=== PATIENT | female | born 1995 | race Caucasian/White ===

== ENCOUNTER 2019-05-04 17:02 | Day surgery (SDC) | payer OTHER ==
[2019-05-04 17:54] VITALS: BMI 45.1
[2019-05-04 17:55] VITALS: BP 120/76
[2019-05-04 18:12] VITALS: TEMP 99.7
[2019-05-04] MEDS ORDERED: hydrALAZINE 20 MG/ML VIAL SLOW IVP PRN (21:03)
[2019-05-04] MEDS ORDERED: Morphine 10 MG/ML VIAL IM SCH (21:15)
--- NOTE | 2019-05-05 02:46 | HP ---
CHIEF COMPLAINT: Painful contraction. HISTORY OF PRESENT ILLNESS: This is a 23-year-old G2, P0, at 39 weeks and 1 day with complaints of painful contractions since 2 o'clock this afternoon. The patient reports they have been regular every 5-7 minutes and rates them as 6/10 on the pain scale. She denies any leakage of fluid or vaginal bleeding. She endorses good movement. OBSTETRICAL HISTORY: care with Dr. Charles, uncomplicated . ARTHUR is 05/10/2019. Normal labs. Rh negative, status post RhoGAM. PAST MEDICAL HISTORY: Denies. PAST SURGICAL HISTORY: Denies. SOCIAL HISTORY: Negative x3. FAMILY HISTORY: Noncontributory. MEDICATIONS: 1. Tums. 2. vitamins. ALLERGIES: NO KNOWN DRUG ALLERGIES. REVIEW OF SYSTEMS: Negative except as noted in HPI. PHYSICAL EXAMINATION: VITAL SIGNS: Blood pressure is 120/76, heart rate is 100, respirations 20, saturations 96%, and temperature is 99.1. GENERAL: In no acute distress. Alert and oriented x3. CARDIAC: Regular rate and rhythm. LUNGS: Clear to auscultation bilaterally. ABDOMEN: Soft, nontender, gravid. EXTREMITIES: No edema, cyanosis, or clubbing. PELVIC: Initial check was 2 cm, 75%, -2 station. Check after the patient walked for 2 hours was exactly the same. Her EFM shows reassuring heart rate with a baseline of 130, moderate [id number] variability, positive accelerations, no decelerations. [place] shows contractions every 2-6 minutes. ASSESSMENT AND PLAN: A 23-year-old G2, P0, at 39 weeks and 1 day, with contractions. The patient has not made any cervical policy change clerk 2 hours. I have given the patient strict labor warnings to return for increase in intensity of contractions, leakage of fluid, or vaginal bleeding. She has a reassuring heart rate tracing and we will give the patient IM morphine prior to DC for comfort measures. All questions answered. Job ID: [id number]
== END 2019-05-04 21:28 | disposition home or self-care (01) ==
LOC: L&D/OP 17:02
PROVIDERS: ATTEND Family Medicine
DX: O47.1 False labor at or after 37 completed weeks of gestation (principal); Z3A.39 39 weeks gestation of pregnancy
CPT/HCPCS: 96372; 99283; J2270

== ENCOUNTER 2019-05-10 10:28 | Inpatient (IN) | payer OTHER ==
[2019-05-13 08:07] VITALS: BMI 45.3
[2019-05-13] MEDS ORDERED: hydrALAZINE 20 MG/ML VIAL SLOW IVP PRN ×2 (08:51→23:56)
[2019-05-13] MEDS ORDERED: NS / Oxytocin 40 units/1000ml 1,000 ML IV PRN (08:51)
[2019-05-13] MEDS ORDERED: Acetaminophen 500 MG TAB PO PRN (08:51)
[2019-05-13] MEDS ORDERED: Meperidine HCl/PF 25 MG/ML VIAL IM/IV PRN (08:51)
[2019-05-13] MEDS ORDERED: Butorphanol Tartrate 1 MG/ML VIAL SLOW IVP PRN (08:51)
[2019-05-13] MEDS ORDERED: Promethazine HCl 25 MG/ML VIAL IM PRN ×2 (08:51→13:26)
[2019-05-13] MEDS ORDERED: Lidocaine 1% (PF) 30 ML VIAL SC PRN (08:51)
[2019-05-13] MEDS ORDERED: Ondansetron PF 4 MG/2 ML Vial IVP PRN ×2 (08:51→13:26)
[2019-05-13] MEDS ORDERED: NS w/ Oxytocin 10 units 500 ML IV SCH (09:00)
[2019-05-13] MEDS ORDERED: NS w/ Oxytocin 10 units 500 ML ONE (09:04)
[2019-05-13] MEDS ORDERED: Bupivacaine PF 0.5% 30 ML VIAL ONE (09:33)
[2019-05-13] MEDS ORDERED: Bupivacaine 0.25% HCL 30 ML VIAL ONE (09:33)
[2019-05-13 09:35] LABS: Hemoglobin 11.1 g/dL (12.0-16.0); Mean Corpuscular HGB CONC 34.4 g/dL (32.0-36.0); Mean Corpuscular Hemoglobin 28.9 pg (27.0-31.0); Mean Corpuscular Volume 84.1 fL (78.0-98.0); Mean Platelet Volume 8.9 fL (7.4-10.4); Platelet Count 336 thou/uL (130-400); Red Blood Cell (RBC) Count 3.85 mill/uL (4.20-5.40)
[2019-05-13] MEDS: Lactated Ringer's 1,000 ML IV SCH (09:37)
[2019-05-13 09:47] LABS: HBSAg Index 0.23 S/CO (0-0.99); Hep B Surf Ag Non-Reactive S/CO (NonReactive); Syphilis Antibody Nonreactive (Nonreactive); Syphilis Antibody Index 0.02 S/CO (<1.00 Non-Reactive)
[2019-05-13] MEDS ORDERED: Fentanyl 4 mcg/Bup 0.1% Cadd 100 ML ONE (12:05)
[2019-05-13] MEDS ORDERED: Lactated Ringer's 500 ML IV PRN (13:26)
[2019-05-13] MEDS ORDERED: diphenhydrAMINE 50 MG/ML VIAL IVP PRN (13:26)
[2019-05-13] MEDS ORDERED: Naloxone HCl 0.4 mg/ml Vial IVP PRN ×2 (13:26)
[2019-05-13] MEDS ORDERED: ePHEDrine/0.9% NaCl/PF SYRINGE 50 mg/10 ml SLOW IVP PRN (13:26)
[2019-05-13] MEDS ORDERED: Acetaminophen 325 MG TAB PO PRN (13:26)
[2019-05-13] MEDS ORDERED: Fentanyl 4 mcg/Bupivacaine 0.1% Cassette 100 ML EPIDURAL SCH (13:30)
[2019-05-13] MEDS ORDERED: Communication Order-Pharmacy FS SCH (13:30)
--- NOTE | 2019-05-13 15:43 | PDOC.LDHP ---
Labor and Delivery H&P Chief complaint: scheduled induction (Postdates) HPI: at 40+ weeks for scheduled IOL for post-dates. No CTX to report. Feeling well. Current gestational age (weeks): 40 Due date: 05/10/19 Dating criteria: last menstrual period, first trimester ultrasound Grav: 2 Para: 0 Current complications: none Abnormal US findings: No Current medications: pre-jak vitamins Previous surgical history: none Allergies/Adverse Reactions: Allergies Allergy/AdvReac Type Severity Reaction Status Date / Time No Known Allergies Allergy Verified 05/13/19 08:06 Social history: none - Physical Exam Vital signs reviewed and normal: yes General: NAD, resting Heart: RRR Lungs: CTAB Abdomen: gravid Extremeties: no edema FHT: category 1, variability present - Vaginal Exam cm dilated: 2 Effacement: 75% Station: -1 - OB Labs Blood type: A RH: positive Antibody Screen: negative HIV: negative RPR: negative HEPSAg: negative 1 hour GCT: negative GBS: negative Urine drug screen: not done Rubella: immune - Assessment L&D Assessment: elective induction at term - Plan Plan: admit to L&D, labor augmentation if indicated, anesthesia consult for pain management
--- NOTE | 2019-05-13 15:45 | PDOC.EVN ---
Event Note - Event Note Event Note: Came to bedside. Pitocin at 18. Nenita every 2-3 minutes. Ready for epidural. AROM with copious clear fluid. SVE 380/-1.
[2019-05-13] MEDS ORDERED: Lidocaine 1% (PF) 30 ML VIAL ONE (19:39)
[2019-05-13] MEDS ORDERED: Calcium Carbonate 500 MG ChewTAB PO SCH (20:00)
[2019-05-13] MEDS ORDERED: Misoprostol 200 MCG TAB ONE (21:35)
--- NOTE | 2019-05-13 21:59 | PDOC.OPDEL ---
OB Operative/Delivery Note Delivery Dr/Surgeon: Melvin Pre-Delivery Diagnosis: elective induction Procedure/Post Delivery Dx: spontaneous vaginal delivery (Head OA, no nuchal cord, shoulders and body easily followed. Mouth and nares bulb suctioned. Baby to mother's abdomen.) Weeks gestation: 40 Anesthesia: epidural - Findings A Sex: female - 1 min: 9 - 5 min: 9 - Additional Findings/Plan Placenta delivered: spontaneous (Intact and 3 vessel cord.) Repaired Obstetrical Laceration: vaginal (Left labial with posterior vaginal extension. No perineal involvement. Repaired with 2.0 vigryl suture in running fashion. Good hemostasis.) Post delivery plan: routine recovery
[2019-05-13] MEDS ORDERED: Benzocaine-Menthol 82.5 ML CAN TOP PRN (23:56)
[2019-05-13] MEDS ORDERED: Bisacodyl 10 MG SUPP PR PRN (23:56)
[2019-05-13] MEDS ORDERED: Milk Of Magnesia 30 ML UDCUP PO PRN (23:56)
[2019-05-13] MEDS ORDERED: Lanolin Ointment 7 GM TUBE TOP PRN (23:56)
[2019-05-13] MEDS ORDERED: NS / Oxytocin 40 units/1000ml 1,000 ML IV SCH (23:56)
[2019-05-13] MEDS ORDERED: Preparation H Ointment 28 GM TUBE PR PRN (23:56)
[2019-05-14] MEDS: Ibuprofen 800 MG TAB PO SCH ×5 (00:01→20:56)
[2019-05-14] MEDS: Ferrous Sulfate 325 MG TAB PO SCH ×2 (08:47→21:05)
[2019-05-14] MEDS: Docusate Calcium (SURFAK) 240 MG CAP PO SCH ×2 (08:48→20:56)
[2019-05-14] MEDS: HYDROcodone/Acetaminophen 5/325 mg Tablet PO PRN ×2 (11:03→17:30)
--- NOTE | 2019-05-14 11:59 | PDOC.PP ---
Post Progress Note Post Day #: 1 Subjective: Doing well. Pain controlled. Lochia normal. Showered this AM. going well. PO intake tolerated: yes Flatus: yes Ambulation: yes Vital Signs (12 hours) Temp Pulse Resp BP Pulse Ox 05/14/19 11:47 97.9 F 95 16 123/64 97 05/14/19 08:12 97.9 F 86 13 114/54 L 97 Weight Weight 256 lb - Physical Examination General: NAD Cardiovascular: no m/r/g, RRR Respiratory: clear to auscultation bilaterally, non-labored breathing Abdominal: + bowel sounds, lochia, no distention, appropriately TTP Extremities: negative homans (B) Neurological: no gross focal deficits Psychiatric: A&Ox3 Result Diagrams: 05/13/19 09:00 Additional Labs: Post Labs Blood Type A POSITIVE 05/13/19 09:00 Hep Bs Antigen Non-Reactive S/CO (NonReactive) 05/13/19 09:00 (1) Vaginal delivery Code(s): O80 - ENCOUNTER FOR FULL-TERM UNCOMPLICATED DELIVERY Status: Acute - Assessment/Plan Routine PP care D/C home tomorrow Continue to work on BF
[2019-05-14] MEDS: Lactated Ringer's 1,000 ML IV SCH (13:50)
[2019-05-15] MEDS: Ferrous Sulfate 325 MG TAB PO SCH (08:20)
[2019-05-15 08:37] VITALS: BP 119/70; TEMP 98.5
[2019-05-15] MEDS: Docusate Calcium (SURFAK) 240 MG CAP PO SCH (08:47)
[2019-05-15] MEDS: Ibuprofen 800 MG TAB PO SCH (08:59)
--- NOTE | 2019-05-15 14:16 | PDOC.PP ---
Post Progress Note Post Day #: 2 Subjective: Doing well. No complaints. Using a shield with . PO intake tolerated: yes Flatus: yes Ambulation: yes Vital Signs (12 hours) Temp Pulse Resp BP Pulse Ox 05/15/19 08:28 98.5 F 70 18 119/70 97 Weight Weight 256 lb - Physical Examination General: NAD Cardiovascular: no m/r/g, RRR Respiratory: clear to auscultation bilaterally, non-labored breathing Abdominal: + bowel sounds, lochia, no distention, appropriately TTP Result Diagrams: 05/13/19 09:00 Additional Labs: Post Labs Blood Type A POSITIVE 05/13/19 09:00 Hep Bs Antigen Non-Reactive S/CO (NonReactive) 05/13/19 09:00 (1) Vaginal delivery Code(s): O80 - ENCOUNTER FOR FULL-TERM UNCOMPLICATED DELIVERY Status: Acute - Assessment/Plan Routine PP care D/C home F/U in 6 weeks
== END 2019-05-15 15:40 | disposition home or self-care (01) | DRG 807 ==
LOC: EDSTATUS 16:09 → L&D 05-13 07:21 → 3SE 05-13 23:50
PROVIDERS: ADMIT Family Medicine; ATTEND Family Medicine
PROC: 10E0XZZ Delivery of Products of Conception, External Approach (ICD-10-PCS; principal; 2019-05-13)
PROC: 10907ZC Drainage of Amniotic Fluid, Therapeutic from Products of Conception, Via Natural or Artificial Opening (ICD-10-PCS; 2019-05-13)
PROC: 3E033VJ Introduction of Other Hormone into Peripheral Vein, Percutaneous Approach (ICD-10-PCS; 2019-05-13)
PROC: 0HQ9XZZ Repair Perineum Skin, External Approach (ICD-10-PCS; 2019-05-13)
DX: O48.0 Post-term pregnancy (principal); Z37.0 Single live birth; Z3A.40 40 weeks gestation of pregnancy; O70.0 First degree perineal laceration during delivery
CPT/HCPCS: 36415; 51702; 85027; 86780; 86850; 86900; 86901; 87340; J2001; J2405; J2590; S0020

== ENCOUNTER 2019-10-17 10:00 | Outpatient (CLI) | payer OTHER | END 2019-10-17 10:01 | disposition home or self-care (01) | LOC: DTY/OP 10:00 | PROVIDERS: ATTEND Surgery | DX: E66.01 Morbid (severe) obesity due to excess calories (principal) | CPT/HCPCS: 97802 ==

== ENCOUNTER 2019-11-18 08:38 | Outpatient (CLI) | payer OTHER | END 2019-11-18 08:39 | disposition home or self-care (01) | LOC: DTY/OP 08:38 | PROVIDERS: ATTEND Surgery | DX: E66.01 Morbid (severe) obesity due to excess calories (principal) | CPT/HCPCS: 97802 ==

== ENCOUNTER 2020-02-17 06:40 | Outpatient (CLI) | payer OTHER ==
--- NOTE | 2020-02-17 08:05 | RAD ---
EXAM: Chest PA and lateral: HISTORY: Preoperative exam. COMPARISON: None FINDINGS: Heart: Normal cardiac silhouette Aorta: Unremarkable Pulmonary vessels: Normal Costophrenic angles: Costophrenic angles are clear. Lungs: No consolidation or masses. Pneumothorax: No pneumothorax Osseous structures: No osseous abnormalities IMPRESSION: No acute cardiopulmonary process.
[2020-02-17 11:10] LABS: #Basophils 0.1 thou/uL (0.0-0.2); #Eosinphils 0.1 thou/uL (0.0-0.7); #Lymphocytes 2.1 thou/uL (1.20-3.40); #Monocytes 0.4 thou/uL (0.11-0.59); #Neutrophils 4.5 thou/uL (1.40-6.50); %Basophils 0.8 % (0.0-1.0); %Eosinophils 1.7 % (0.0-10.0); %Lymphocytes 28.8 % (21.0-51.0); %Monocytes 5.8 % (0.0-10.0); %Neutrophils 62.9 % (42.0-75.0); Hemoglobin 13.6 g/dL (12.0-16.0); Mean Corpuscular HGB CONC 33.1 g/dL (32.0-36.0); Mean Corpuscular Volume 84.8 fL (78.0-98.0); Mean Platelet Volume 9.9 fL (7.4-10.4); Platelet Count 310 thou/uL (130-400); RBC Distribution Width 12.6 % (11.5-14.5); Red Blood Cell (RBC) Count 4.85 mill/uL (4.20-5.40); White Blood Cell (WBC) Count 7.2 thou/uL (4.8-10.8)
[2020-02-17 11:21] LABS: BHCG - Serum Negative (NEGATIVE); Pregs Control Background? CLEAR/WHITE (CLR/WHITE); Pregs Control Bar Appear? YES (CONTROL BAR)
[2020-02-17 12:52] LABS: Hemoglobin A1c 5.1 % (4.0-6.0)
[2020-02-17 13:23] LABS: ALT (SGPT) 41 U/L (8-55); AST (SGOT) 25 U/L (5-34); Albumin 3.9 g/dL (3.5-5.0); Alkaline Phosphatase 86 U/L (40-110); Anion Gap 16 mmol/L (10-20); BUN (Urea Nitrogen) 13 mg/dL (7.0-18.7); Bilirubin, Total 0.5 mg/dL (0.2-1.2); Calc. Creatinine Clearance 0 mL/min (70-130); Calcium 9.1 mg/dL (7.8-10.44); Carbon Dioxide 20 mmol/L (22-29); Chloride 106 mmol/L (98-107); Estimated GFR-MDRD Greater than 90; Globulin 3.3 g/dL (2.4-3.5); Glucose 84 mg/dL (70-105); Potassium 4.7 mmol/L (3.5-5.1); Protein, Total 7.2 g/dL (6.0-8.3); Sodium 137 mmol/L (136-145)
[2020-02-17 17:21] LABS: SARS-CoV-2 MS2 Positive; SARS-CoV-2 N Gene Negative; SARS-CoV-2 S Gene Negative; SARS-CoV-2 by NAA Not Detected (NotDetected); SARS-CoV-2 orf1ab Negative
--- NOTE | 2020-02-24 13:18 | EKG ---
Test Reason : EKG Blood Pressure : / mmHG Vent. Rate : 068 BPM Atrial Rate : 068 BPM P-R Int : 142 ms QRS Dur : 080 ms QT Int : 386 ms P-R-T Axes : 019 073 026 degrees QTc Int : 410 ms Normal sinus rhythm with sinus arrhythmia Nonspecific T wave abnormality Abnormal ECG No previous ECGs available Confirmed by DR. Maria De Jesus THOMASON ([id number]) on 02/24/2020 1:18:06 PM Referred By: DR LUCAS Confirmed By:DR. Maria De Jesus THOMASON
== END 2020-02-17 06:41 | disposition home or self-care (01) ==
LOC: LABBT 06:40 → SCSRAD 06:41
PROVIDERS: ATTEND Surgery
DX: Z01.818 Encounter for other preprocedural examination (principal); E66.01 Morbid (severe) obesity due to excess calories; Z20.828 Contact with and (suspected) exposure to other viral communicable diseases
CPT/HCPCS: 71046; 80053; 83036; 84703; 85025; 87635; 93005; 93010; U0003

== ENCOUNTER 2020-02-17 07:15 | Inpatient (IN) | payer OTHER ==
[2020-02-22] MEDS ORDERED: Heparin 5,000 UNITS/ML VIAL ONE (07:47)
[2020-02-22] MEDS ORDERED: Midazolam HCl 2 mg/2 ml Vial ONE (08:58)
[2020-02-22] MEDS ORDERED: Bupivacaine/Epinephrine 0.25% 30 ML VIAL ONE (09:04)
[2020-02-22] MEDS ORDERED: Famotidine/PF 20 mg/2ml Vial ONE (09:12)
[2020-02-22] MEDS ORDERED: Fentanyl 100 MCG/2 ML VIAL ONE (09:12)
[2020-02-22] MEDS ORDERED: Ondansetron PF 4 MG/2 ML Vial ONE (09:31)
[2020-02-22] MEDS ORDERED: Dexamethasone 20 MG/5 ML VIAL ONE (09:31)
[2020-02-22] MEDS ORDERED: Ketorolac Tromethamine 30 MG/ML VIAL ONE (09:31)
[2020-02-22] MEDS ORDERED: Glycopyrrolate 0.2 MG/ML 5 ML SYRINGE ONE (09:31)
[2020-02-22] MEDS ORDERED: Lidocaine 1% PF 5 ML VIAL ONE (09:31)
[2020-02-22] MEDS ORDERED: Rocuronium Bromide 10 MG/ML (10ML VIAL) ONE (09:31)
[2020-02-22] MEDS ORDERED: PROPOFOL 200 MG/20 ML VIAL ONE (09:31)
[2020-02-22] MEDS ORDERED: PACU-Morphine 4MG/ML VIAL SLOW IVP PRN (10:10)
[2020-02-22] MEDS ORDERED: HYDROmorphone 2 MG/ML VIAL SLOW IVP PRN (10:10)
[2020-02-22] MEDS ORDERED: Promethazine HCl 25 MG/ML VIAL SLOW IVP PRN (10:10)
[2020-02-22] MEDS ORDERED: Naloxone HCl 0.4 mg/ml Vial IV PRN (10:10)
[2020-02-22] MEDS ORDERED: Morphine Sulfate 2 MG/ML SYRINGE SLOW IVP PRN (10:10)
[2020-02-22] MEDS ORDERED: Ketorolac Tromethamine 30 MG/ML VIAL IVP PRN (10:10)
[2020-02-22] MEDS ORDERED: Meperidine HCl/PF 25 MG/ML VIAL SLOW IVP PRN (10:10)
[2020-02-22] MEDS ORDERED: diphenhydrAMINE 25 MG CAP PO PRN (10:10)
[2020-02-22] MEDS ORDERED: fentaNYL Citrate/PF 2,000 MCG in Sodium Chloride 0.9% 60 ML IV PRN (10:10)
[2020-02-22] MEDS ORDERED: Promethazine HCl 25 MG/ML VIAL IM PRN ×3 (10:10→10:38)
[2020-02-22] MEDS ORDERED: diphenhydrAMINE 50 MG/ML VIAL IVP PRN ×2 (10:10→10:38)
[2020-02-22] MEDS ORDERED: Zolpidem Tartrate 5 MG TAB PO PRN (10:10)
[2020-02-22] MEDS ORDERED: diphenhydrAMINE 50 MG/ML VIAL IM PRN (10:10)
[2020-02-22] MEDS ORDERED: Ondansetron HCl/PF 4 MG/2 ML Vial IVP PRN (10:10)
[2020-02-22] MEDS ORDERED: Communication Order-Pharmacy FS SCH (10:15)
[2020-02-22] MEDS ORDERED: hydrALAZINE 20 MG/ML VIAL SLOW IVP PRN (10:38)
[2020-02-22] MEDS ORDERED: Dextrose 50% Abboject 50 ML SYRINGE SLOW IVP PRN (10:38)
[2020-02-22] MEDS ORDERED: Hydrocodone-Acetamin 15 ML UDCUP PO PRN ×2 (10:38→10:59)
[2020-02-22] MEDS ORDERED: Dextrose 5% in Water 1,000 ML IV PRN (10:38)
[2020-02-22] MEDS ORDERED: Ondansetron PF 4 MG/2 ML Vial IVP PRN (10:38)
[2020-02-22] MEDS ORDERED: Promethazine HCl 25 MG/ML VIAL ONE (11:19)
[2020-02-22] MEDS: Ketorolac Tromethamine 30 MG/ML VIAL IVP SCH ×3 (11:39→23:37)
[2020-02-22] MEDS: D5 1/2 NS w/20 mEq KCL 1,000 ML IV SCH ×2 (12:01→19:43)
[2020-02-22 12:27] VITALS: BMI 40.5
[2020-02-22] MEDS: Ondansetron PF 4 MG/2 ML Vial IVP PRN (16:15)
[2020-02-23] MEDS: D5 1/2 NS w/20 mEq KCL 1,000 ML IV SCH ×3 (03:31→19:57)
[2020-02-23] MEDS: Ketorolac Tromethamine 30 MG/ML VIAL IVP SCH ×3 (05:26→17:30)
[2020-02-23 05:37] LABS: #Lymphocytes 2.2 thou/uL (1.20-3.40); #Monocytes 1.1 thou/uL (0.11-0.59); #Neutrophils 8.4 thou/uL (1.40-6.50); %Basophils 0.4 % (0.0-1.0); %Eosinophils 0.1 % (0.0-10.0); %Lymphocytes 18.8 % (21.0-51.0); %Neutrophils 71.7 % (42.0-75.0); Hemoglobin 12.7 g/dL (12.0-16.0); Mean Corpuscular HGB CONC 33.6 g/dL (32.0-36.0); Mean Corpuscular Hemoglobin 28.7 pg (27.0-31.0); Mean Corpuscular Volume 85.5 fL (78.0-98.0); Mean Platelet Volume 8.9 fL (7.4-10.4); Platelet Count 318 thou/uL (130-400); RBC Distribution Width 12.3 % (11.5-14.5); Red Blood Cell (RBC) Count 4.42 mill/uL (4.20-5.40); White Blood Cell (WBC) Count 11.7 thou/uL (4.8-10.8)
[2020-02-23 05:58] LABS: Anion Gap 13 mmol/L (10-20); BUN (Urea Nitrogen) 5 mg/dL (7.0-18.7); Calc. Creatinine Clearance 224 mL/min (70-130); Calcium 8.3 mg/dL (7.8-10.44); Carbon Dioxide 19 mmol/L (22-29); Chloride 109 mmol/L (98-107); Estimated GFR-MDRD Greater than 90; Glucose 115 mg/dL (70-105); Potassium 3.6 mmol/L (3.5-5.1); Sodium 137 mmol/L (136-145)
[2020-02-23] MEDS: Pantoprazole 40 MG VIAL IVP SCH (08:50)
[2020-02-23] MEDS: Enoxaparin Sodium 40 MG/0.4 ML SYRINGE SC SCH (08:50)
--- NOTE | 2020-02-23 10:27 | OP ---
DATE OF PROCEDURE: 02/22/2020 PREOPERATIVE DIAGNOSIS: Morbid obesity. PROCEDURE PERFORMED: Laparoscopic sleeve gastrectomy, esophagogastroscopy. INDICATIONS: This is a 24-year-old female, morbidly obese, who has attempted multiple weight loss programs without success. FINDINGS: A 38-Dominican bougie was used. DESCRIPTION OF PROCEDURE: After informed consent was obtained, the patient was taken to the operating room, given general endotracheal anesthesia, placed in supine position. Abdomen was prepped and draped in usual fashion. Local anesthesia was infiltrated subcutaneously and deep, and a 12 mm incision was performed approximately 8 inches below xiphoid, slightly to the left. Veress needle inserted. Drop test performed. Pneumoperitoneum was created to a volume of 2 L of carbon dioxide. Utilizing a bladeless 12 mm trocar and 0-degree laparoscopic, direct visual entry into the abdominal cavity was performed. Pneumoperitoneum was then created to a pressure of 15 mmHg and the patient placed in steep reverse Trendelenburg position. With Lucia liver retractor, the left lobe of the liver retracted superior. The pylorus identified. A 12-mm port placed on the right beneath it and two 12s were placed in left subcostal. The omentum was taken off the greater curvature, 5 cm from the pylorus utilizing the LigaSure. Short gastrics divided with LigaSure. Left crura defined with LigaSure. A 38-Dominican bougie inserted, directed into the antrum. The linear 60 mm green load stapler reinforced with Ethicon reinforcements was used to divide the antrum to the bougie, gold load along the bougie, and a series of blues to the angle of His. Intraoperative endoscopy was performed. The video endoscope was inserted under direct vision, advanced into the sleeve. The staple line inspected. There was no bleeding. Staple line then tested by inflating the stomach with pressurized air and water. There was no air leak. Stomach decompressed. Scope removed. The remnant stomach removed from the abdomen through left lateral port site. The fascia closed with 0 Vicryl suture in a GraNee needle. Trocars and retractors removed. The skin closed with interrupted 4-0 Rapide. Dermabond applied. The patient tolerated the procedure well, transferred to Recovery in good condition. Sponge and needle count verified correct x2. Job ID: [id number]
--- NOTE | 2020-02-23 17:31 | PRG ---
DATE OF SERVICE: 02/23/2020 SUBJECTIVE: The patient reports pain is getting better, but still having some trouble getting enough fluids in. No nausea or vomiting. OBJECTIVE: VITAL SIGNS: Her temperature is 98, pulse 74, blood pressure 114/75. She looks great. The incisions are healing well. There is no evidence of infection. LABORATORY DATA: Her white count 11, H and H of 12 and 37, platelet count 318. Electrolytes are okay. ASSESSMENT: Postop swallowing. PLAN: We will give another day and hopefully she will be able to take enough p.o. to go home. Job ID: [id number]
[2020-02-24] MEDS: Ketorolac Tromethamine 30 MG/ML VIAL IVP SCH ×2 (00:01→05:31)
[2020-02-24] MEDS: Ondansetron PF 4 MG/2 ML Vial IVP PRN (00:06)
[2020-02-24] MEDS: D5 1/2 NS w/20 mEq KCL 1,000 ML IV SCH ×2 (03:58→10:36)
[2020-02-24 05:19] VITALS: TEMP 98.3
[2020-02-24 07:24] VITALS: BP 111/74
[2020-02-24] MEDS: Pantoprazole 40 MG VIAL IVP SCH (08:01)
[2020-02-24] MEDS: Enoxaparin Sodium 40 MG/0.4 ML SYRINGE SC SCH (08:01)
--- NOTE | 2020-02-25 01:08 | DIS ---
DATE OF ADMISSION: 02/22/2020 DATE OF DISCHARGE: 02/24/2020 DISCHARGE DIAGNOSIS: Morbid obesity. PROCEDURES DURING ADMISSION: Laparoscopic sleeve gastrectomy and intraoperative esophagogastroscopy. HOSPITAL COURSE: The patient was admitted and taken to the operating room, where she underwent sleeve and intraoperative EGD. Postoperatively, she had a little bit of dysphagia, making it difficult to stay hydrated. She is doing much better now. She is discharged home on hydrocodone and Phenergan. She will follow up with me in 2 weeks. Job ID: [id number]
== END 2020-02-24 10:48 | disposition home or self-care (01) | DRG 621 ==
LOC: SURG A 02-22 07:16 → SURG B 02-22 11:52
PROVIDERS: ADMIT Surgery; ATTEND Surgery
PROC: 0DB64Z3 Excision of Stomach, Percutaneous Endoscopic Approach, Vertical (ICD-10-PCS; principal; 2020-02-22)
PROC: 0DJ08ZZ Inspection of Upper Intestinal Tract, Via Natural or Artificial Opening Endoscopic (ICD-10-PCS; 2020-02-22)
DX: E66.01 Morbid (severe) obesity due to excess calories (principal); Z68.41 Body mass index [BMI] 40.0-44.9, adult; R13.10 Dysphagia, unspecified; Z20.828 Contact with and (suspected) exposure to other viral communicable diseases
CPT/HCPCS: 36415; 80048; 85025; 88307; 88312; C9113; J0690; J1100; J1644; J1650; J1885; J2250; J2405; J2550; J2704; J3010; J3480; S0028

== ENCOUNTER 2020-04-05 11:21 | Day surgery (SDC) | payer OTHER ==
[2020-04-05] MEDS ORDERED: Sodium Chloride 0.9% 20 ML ONE (11:25)
[2020-04-05 11:44] VITALS: BP 114/64; TEMP 98.4
[2020-04-05] MEDS ORDERED: Multivitamins, Adult 10 ML in Sodium Chloride 0.9% 1,000 ML IV SCH (11:45)
== END 2020-04-05 14:14 | disposition home or self-care (01) ==
LOC: ONC/OP 11:21
PROVIDERS: ATTEND Surgery
DX: E86.0 Dehydration (principal)
CPT/HCPCS: 96361; 96365; 96366; J7050

== ENCOUNTER 2023-03-09 13:19 | Emergency (ER) | payer BC ==
[2023-03-09] MEDS ORDERED: Ibuprofen 200 MG TAB ONE (14:04)
[2023-03-09] MEDS ORDERED: Acetaminophen 500 MG TAB ONE (14:04)
== END 2023-03-09 15:24 | disposition home or self-care (01) ==
LOC: ERS 13:19
DX: M25.512 Pain in left shoulder (principal); M25.561 Pain in right knee
CPT/HCPCS: 70450; 71045; 72125